=== PATIENT | male | born 1960 | race Caucasian/White ===

== ENCOUNTER 2018-03-21 19:10 | Emergency (ER) | payer BC ==
[2018-03-21 19:33] VITALS: TEMP 97.8
[2018-03-21] MEDS ORDERED: ASPIRIN 81 MG CHEWABLE CTB ONE (19:33)
[2018-03-21] MEDS ORDERED: METOPROLOL TARTRATE 5 MG/5 ML SOL IV ONE (19:35)
[2018-03-21 19:37] LABS: BASOPHILS % (AUTO) 1 % (0-3); EOSINOPHILS % (AUTO) 3 % (0-9); HEMATOCRIT 48 % (39-53); HEMOGLOBIN 15.6 gm/dl (13.5-17.7); MEAN CORPUSCULAR HEMOGLOBIN 28.3 pg (27.0-32.0); MEAN CORPUSCULAR HGB CONC 32.4 gm/dl (32.0-36.0); MEAN CORPUSCULAR VOLUME 88 fL (80-100); NEUTROPHILS % (AUTO) 62.7 % (37-80)
[2018-03-21 19:42] LABS: INR 0.88 (0.86-1.12)
[2018-03-21 19:50] LABS: ALBUMIN 3.5 gm/dl (3.4-5.0); ALKALINE PHOSPHATASE 126 IU/L (46-116); ALT 30 IU/L (14-63); AST 14 IU/L (15-37); BILIRUBIN,TOTAL 0.4 mg/dl (0.2-1.0); BLOOD UREA NITROGEN 27 mg/dl (7-18); CALCIUM 8.8 mg/dl (8.5-10.1); CARBON DIOXIDE 31.3 mEq/L (21-32); CHLORIDE 104 mMol/L (98-107); CREATININE 1.14 mg/dl (0.80-1.30); GLUCOSE 124 mg/dl (74-106); SODIUM 142 mMol/L (136-145); TOTAL PROTEIN 6.8 gm/dl (6.4-8.2); TROP I < 0.017 ng/ml (0.000-0.056)
[2018-03-21 19:59] LABS: DDIMER QUANTITATIVE < 100 ng/ml (<100-400)
[2018-03-21 22:09] VITALS: BP 120/79; PULSE 74; RESP 16; O2SAT 97
[2018-03-22] MEDS ORDERED: ASPIRIN EC 81 MG PO SCH (09:00)
== END 2018-03-21 22:02 | disposition home or self-care (01) ==
LOC: ED 19:10
DX: R07.89 Other chest pain (principal); I10 Essential (primary) hypertension
CPT/HCPCS: 71275; 80053; 84484; 85025; 85378; 85610; 93005; 99284; 99285; Q9967